=== PATIENT | female | born 1965 | race Caucasian/White ===

== ENCOUNTER → 2024-02-13 | Outpatient (CLI) | payer BC, MEDICAID, SELFPAY ==
--- NOTE | 2024-02-13 11:40 | XR_ITS ---
Examination: Diagnostic digital mammography, unilateral, left Computer aided detection 3-D breast Tomosynthesis, unilateral Date and time of exam: February 13, 2024 1149 hours INDICATIONS: Mammogram August 24, 2023 6 mm focal asymmetry upper outer left breast Technique: Nonmagnified MLO, CC views of the left breast have been obtained, reconstructed from 3-D Tomosynthesis images. R2 computer aided detection program utilized for evaluation of suspicious masses and/or abnormal calcifications. 3-D Tomosynthesis images obtained. Findings: Scattered areas of fibroglandular density Left breast sonogram today demonstrates multiple circumscribed nodules left breast although no suspicious nodules depicted mammographically Impression: BI-RADS category 2: Benign findings Recommend yearly follow-up mammography Please see the left breast sonogram report today recommending 6 month left breast sonogram follow-up
--- NOTE | 2024-02-13 11:40 | XR_ITS ---
Examination: Breast ultrasound, unilateral, left complete Date and time of exam: February 13, 2024 1206 hours INDICATIONS: Mammogram October 26, 2023 focal asymmetry remains outer left breast Technique: Real-time resendiz scale ultrasonographic imaging performed left breast including all 4 quadrants as well as nipple retroareolar and axillary region. Findings: 12:00 oval mass circumscribed 8 x 3 x 6 mm 1:00 oval mass lobular margins 10 x 5 x 11 mm 2:00 oval mass lobular margins 8 x 4 x 7 mm 4:00 oval mass lobular margins 9 x 4 x 8 mm 9:00 oval mass circumscribed hyperechoic 13 x 4 x 12 mm IMPRESSION: BI-RADS Category 3: Probably benign findings Recommend 1 additional 6 month left breast sonogram follow-up to document stability of multiple solid nodules described above
== END | disposition home or self-care (01) ==
PROVIDERS: PCP Family Medicine; Referring Provider Family Medicine; Visit Provider Family Medicine
DX: R92.322 Mammographic fibroglandular density, left breast (principal); N63.25 Unspecified lump in the left breast, overlapping quadrants; N63.22 Unspecified lump in the left breast, upper inner quadrant; N63.21 Unspecified lump in the left breast, upper outer quadrant
CPT/HCPCS: 76641; 77061; 77065; G0279

== ENCOUNTER → 2024-12-04 | Outpatient (CLI) | payer BC, SELFPAY ==
[2024-12-04 09:47] LABS: Quantiferon-TB* See Sep Rpt
[2024-12-04 10:30] LABS: Sed Rate (ESR) 26 mm/hr (0-30)
[2024-12-04 10:45] LABS: Free T4 (Free Thyroxine) 1.16 ng/dL (0.89-1.76); Thyroid Stimulating Hormone 2.16 uIU/mL (0.55-4.78)
[2024-12-09 06:56] LABS: ANA Pattern NUCLEAR, SPECKLED; ANA Screen, IFA POSITIVE (NEGATIVE); ANA Titer 1:80 titer
== END | disposition home or self-care (01) ==
LOC: COPL 09:25
PROVIDERS: PCP Family Medicine; Referring Provider Family Medicine; Visit Provider Student in an Organized Health Care Education/Training Program
DX: E03.2 Hypothyroidism due to medicaments and other exogenous substances (principal); M79.10 Myalgia, unspecified site; H20.9 Unspecified iridocyclitis
CPT/HCPCS: 36415; 84439; 84443; 85652; 86038; 86039; 86480

== ENCOUNTER → 2025-01-30 | Outpatient (CLI) | payer BC, SELFPAY ==
--- NOTE | 2025-01-30 09:45 | XR_ITS ---
Examination: Breast ultrasound complete, bilateral Date and time of exam: January 30, 2025, 0953 hours INDICATIONS: Multiple left breast nodules on left breast sonogram February 13, 2024 Technique: Real-time grayscale ultrasonographic imaging bilateral breasts, including all 4 quadrants as well as nipple retroareolar and axillary regions. Findings: Sonographic images right breast 9:00 nodule circumscribed 6 x 4 mm 11:00 nodule lobular margins 5 x 5 mm Sonographic images left breast 12:00 nodule lobular margins 8 x 6 mm 1:00 nodule lobular margins 13 x 11 mm 4:00 nodule lobular margins 8 x 5 mm 9:00 hypoechoic nodule circumscribed 12 x 6 mm IMPRESSION: BI-RADS Category 3: Probably benign findings Recommend 1 additional 6-month bilateral breast sonography follow-up to document stability of multiple nodules described above
--- NOTE | 2025-01-30 11:00 | XR_ITS ---
Examination: Diagnostic digital mammography, bilateral Computer aided detection 3-D breast Tomosynthesis, bilateral Date and time of exam: January 30, 2025, 0950 hours INDICATIONS: Left breast pain beginning 1 year ago, family history breast cancer Technique: Nonmagnified MLO, CC views of the breasts to been obtained, reconstructed from 3-D Tomosynthesis images. R2 computer aided detection program utilized for evaluation of suspicious masses and/or abnormal calcifications. 3-D Tomosynthesis images obtained. Findings: Scattered areas of fibroglandular density. 10 mm, 9 mm circumscribed nodules upper outer left breast Impression: BI-RADS Category 0: Incomplete: Need additional imaging evaluation Recommend follow-up spot tomographic views upper outer quadrant left breast to assess left breast nodules as well as left breast sonography to complete the work-up.
== END | disposition home or self-care (01) ==
LOC: CDIM 09:30
PROVIDERS: PCP Family Medicine; Referring Provider Family Medicine; Visit Provider Family Medicine
DX: N63.21 Unspecified lump in the left breast, upper outer quadrant (principal); N63.11 Unspecified lump in the right breast, upper outer quadrant; N63.23 Unspecified lump in the left breast, lower outer quadrant
CPT/HCPCS: 76641; 77062; 77066; G0279

== ENCOUNTER → 2025-03-03 | Outpatient (CLI) | payer BC, SELFPAY ==
--- NOTE | 2025-03-03 14:00 | XR_ITS ---
Examination: Breast ultrasound, unilateral, left Date and time of exam: March 03, 2025, 1427 hours INDICATIONS: Mammogram 10/30/2024 10 mm 9 mm circumscribed nodules upper outer left breast Technique: Real-time resendiz scale ultrasonographic imaging performed left breast including all 4 quadrants as well as nipple retroareolar and axillary region. Findings: 12:00 nodule lobular margins 10 x 6 mm 1:00 nodule lobular margins 13 x 10 mm 2:00 nodule lobular margins 12 x 14 mm 9:00 nodule lobular margins 11 x 7 mm 12 mm axillary lymph node IMPRESSION: BI-RADS Category 3: Probably benign findings Recommend 1 additional 6-month left breast sonogram follow-up to document stability of multiple nodules described
--- NOTE | 2025-03-03 14:30 | XR_ITS ---
Examination: Diagnostic digital mammography, unilateral, left Computer aided detection 3-D breast Tomosynthesis, unilateral Date and time of exam: March 03, 2025, 1444 hours INDICATIONS: Mammogram January 30, 2025 10 mm 9 mm circumscribed nodules upper outer left breast Technique: Nonmagnified MLO, CC views of the left breast have been obtained, reconstructed from 3-D Tomosynthesis images. R2 computer aided detection program utilized for evaluation of suspicious masses and/or abnormal calcifications. 3-D Tomosynthesis images obtained. Findings: Scattered areas of fibroglandular density 15 mm circumscribed nodule outer left breast Impression: BI-RADS category 3: Probably benign findings Recommend 1 additional 6-month left mammogram follow-up to document stability of nodule described above
== END | disposition home or self-care (01) ==
PROVIDERS: PCP Family Medicine; Referring Provider Family Medicine; Visit Provider Family Medicine
DX: R92.332 Mammographic heterogeneous density, left breast (principal); N63.20 Unspecified lump in the left breast, unspecified quadrant
CPT/HCPCS: 76641; 77061; 77065; G0279